=== PATIENT | male | born 1945 | race Caucasian/White ===

== ENCOUNTER → 2017-10-30 | Outpatient (CLI) | payer MEDICARE ==
--- NOTE | 2017-10-30 10:15 | KCIC ---
MR of the left shoulder Indication: Impingement syndrome. Pain for about one month. Rotator cuff surgery 2010. Technique: Standard multiplanar sequences are obtained. Findings: Artifact: Mild susceptibility artifact about the rotator cuff region due to prior surgical intervention. Acromioclavicular joint: Degenerative change, with mild undersurface osteophytes and mass effect. Rotator cuff: * Supraspinatus-infraspinatus tendon: Supraspinatus tendon thinning. There is some obscuration of the tendon by the artifact, but no evidence of a through and through full-thickness fluid gap to suggest a significant recurrent rupture. * Subscapularis tendon: Severe thinning compatible with high-grade tear. * Muscle bulk: Mild supraspinatus infraspinatus muscle volume loss. * Subacromial subdeltoid bursa: Trace fluid effusion. Fluid: No significant glenohumeral effusion. Glenohumeral cartilage: Mild chondromalacia. Labrum: Small posterosuperior labral tear. Biceps tendon: Not visualized Bones: No lesion or acute fracture. Soft tissue: No acute findings. Impression: 1. Posterosuperior labral tear. 2. Diffuse thinning of the supraspinatus tendon, may just be due to the surgical reattachment. No evidence of full-thickness fluid gap to suggest significant recurrent rupture. High-grade subscapularis tendon thinning or tear. 3. Primary osteoarthritis. 4. Nonvisualized biceps tendon. Electronically signed by: Joe Azevedo MD (10/30/2017 10:11 AM) [facility] [email or web address]
== END | disposition home or self-care (01) ==
LOC: KCIC MRI 08:30
PROVIDERS: ATTEND Orthopaedic Surgery
DX: S43.492A Other sprain of left shoulder joint, initial encounter (principal); M19.012 Primary osteoarthritis, left shoulder; M94.212 Chondromalacia, left shoulder; X58.XXXA Exposure to other specified factors, initial encounter; Y93.89 Activity, other specified; Y92.89 Other specified places as the place of occurrence of the external cause; Y99.8 Other external cause status
CPT/HCPCS: 73221